=== PATIENT | male | born 2000 | race African-American/Black ===

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

== ENCOUNTER 2024-01-01 15:52 | Emergency (ER) | payer OTHER, SELFPAY ==
[2024-01-01 15:53] VITALS: BP 158/94; PULSE 16; RESP 18; TEMP 36.6; O2SAT 99; BMI 28.5
--- NOTE | 2024-01-01 16:10 | CT_ITS ---
STUDY: CT CERVICAL SPINE WITHOUT CONTRAST REASON FOR EXAM: Male, 23 years old. Trauma RADIATION DOSAGE (If Supplied By Facility): CTDIvol = ( 24.22 ) mGy, DLP = ( 515.73 ) mGycm TECHNIQUE: High resolution transaxial imaging was performed without contrast material. Sagittal and coronal images were reconstructed. Individualized dose optimization techniques were used for this CT. COMPARISON: None FINDINGS: Normal craniovertebral junction. Normal anterior atlantoaxial articulation. Normal odontoid process. Straightening of normal lordotic curvature possibly due to muscle spasm or positioning artifact. Normal vertebral bodies and posterior osseous elements. C2-3: Normal endplates. Normal disc height and morphology. Normal central canal and intervertebral neuroforamina. C3-4: Normal endplates. Normal disc height and morphology. Normal central canal and intervertebral neuroforamina. C4-5: Normal endplates. Normal disc height and morphology. Normal central canal and intervertebral neuroforamina. C5-6: Normal endplates. Normal disc height and morphology. Normal central canal and intervertebral neuroforamina. C6-7: Normal endplates. Normal disc height and morphology. Normal central canal and intervertebral neuroforamina. C7-T1: Normal endplates. Normal disc height and morphology. Normal central canal and intervertebral neuroforamina. Normal visualized soft tissue structures. CT/Spine Cervical without Contras IMPRESSION: Straightening of normal cervical curvature otherwise normal unenhanced CT examination of the cervical spine. Electronically Signed: Robson Chairez MD at 16:41 EDT ,
--- NOTE | 2024-01-01 16:10 | CT_ITS ---
INDICATION: Trauma EXAMINATION: CT CHEST WITHOUT CONTRAST - CT Chest W/O Contrast Injection TECHNIQUE: Helically acquired images were obtained of the chest. A radiation dose optimization technique was used for this scan. IV Contrast dosage and agent: None. COMPARISON: None. FINDINGS: LUNGS, PLEURA AND LARGE AIRWAYS: Minor atelectasis within the dependent portion of the upper and lower lobes. No masses, consolidation, or edema. No pleural effusion or thickening. No pneumothorax. THYROID: No thyroid lesions. HEART AND PERICARDIUM: Heart size is normal. No pericardial effusion. CORONARY ARTERIES: Coronary artery calcification VESSELS: Thoracic aorta is not dilated. MEDIASTINUM AND JOSUÉ: No mediastinal or hilar adenopathy. Esophagus is unremarkable. No hiatal hernia. UPPER ABDOMEN: No acute pathology. BONES: No suspicious lytic or blastic abnormality. CT/Chest without Contrast IMPRESSION: Minor atelectasis within the dependent portion of the upper and lower lobes.. Otherwise normal unenhanced CT of the chest Electronically Signed: Robson Chairez MD at 16:44 EDT Reading Location ID and State: [facility] / [place] Tel , Service support ,
--- NOTE | 2024-01-01 16:10 | CT_ITS ---
STUDY: CT BRAIN WITHOUT CONTRAST REASON FOR EXAM: Male, 23 years old. Trauma RADIATION DOSAGE (If Supplied By Facility): CTDIvol = ( 44.99 ) mGy, DLP = ( 728.62 ) mGycm TECHNIQUE: Transaxial CT imaging of the brain was performed without administration of intravenous contrast material. Individualized dose optimization techniques were used for this CT. COMPARISON: No relevant priors. FINDINGS: Normal soft tissue structures. Normal calvarium. Normal size ventricles and extra-axial spaces for the patient''s age. Normal white matter tracts of the cerebral hemispheres. Normal basal ganglia and thalami. Normal brainstem. Normal cerebellum. There is no intracranial hemorrhage. There are no findings of an acute ischemic infarction. Normal visualized paranasal sinuses. Mucosal thickening of the air air cell septae in the right mastoid sinus likely due to chronic inflammatory changes CT/Brain/Head without Contrast IMPRESSION: Normal unenhanced CT scan of the brain. Findings suggestive of chronic right-sided mastoiditis Electronically Signed: Robson Chairez MD at 16:40 EDT Reading Location ID and State: [facility] / [place] Tel , Service support ,
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
--- NOTE | 2024-01-01 16:30 | RAD_ITS ---
STUDY: X-RAY - LEFT KNEE REASON FOR EXAM: Male, 23 years old. Trauma TECHNIQUE: 4 view(s) of the knee. COMPARISON: None. FINDINGS: Normal visualized distal femur. Normal visualized proximal tibia and fibula. Normal proximal tibiofibular articulation. Normal medial femorotibial compartment. Normal lateral femorotibial compartment. Normal patellofemoral articulation. The soft tissue structures are unremarkable. RAD/Knee 4 or More Views IMPRESSION: Normal x-ray examination of the knee. Electronically Signed: Robson Chairez MD at 16:46 EDT Reading Location ID and State: [facility] / [place] Tel , Service support ,
--- NOTE | 2024-01-01 16:30 | RAD_ITS ---
STUDY: X-RAY - PELVIS AND RIGHT HIP REASON FOR EXAM: Male, 23 years old. Trauma TECHNIQUE: 3 views of the pelvis and hip. COMPARISON: None. FINDINGS: There is a non-specific bowel gas pattern. Normal visualized soft tissue structures. Normal bilateral iliac wings, sacroiliac joints and visualized sacrum. Normal bilateral superior and inferior pubic rami. Normal pubic symphysis. Normal bilateral ischial tuberosities. Normal visualized femoral head. Normal acetabulum. Normal hip joint. RAD/HIP, UNI W/ Pelvis 2-3 Views IMPRESSION: Normal x-ray examination of the pelvis and hip. Electronically Signed: Robson Chairez MD at 16:46 EDT ,
[2024-01-01 16:53] VITALS: BP 149/64; PULSE 80; RESP 16; O2SAT 98
[2024-01-01 17:00] VITALS: PULSE 78; RESP 16; O2SAT 98
== END 2024-01-01 17:26 | disposition home or self-care (01) ==
PROVIDERS: Emergency Provider Emergency Medicine; Visit Provider Emergency Medicine
DX: S00.03XA Contusion of scalp, initial encounter (principal); S30.1XXA Contusion of abdominal wall, initial encounter; S80.912A Unspecified superficial injury of left knee, initial encounter; R04.2 Hemoptysis; V58.6XXA Passenger in pick-up truck or van injured in noncollision transport accident in traffic accident, initial encounter; H70.11 Chronic mastoiditis, right ear; F17.210 Nicotine dependence, cigarettes, uncomplicated
CPT/HCPCS: 70450; 71250; 72125; 73502; 73564; 99282